=== PATIENT | female | born 1945 | race Two or more races ===

== ENCOUNTER 2025-03-05 08:52 | Outpatient (RCR) | payer OTHER, SELFPAY ==
[2025-02-22 08:30] LABS: Hematocrit* 37.6 % (33.0-51.0); Hemoglobin* 11.7 gm/dL (12.0-16.0); Immature Granulocytes Pct Auto 1.5 %; Mean Corpuscular HGB Conc 31 gm/dL (32-36); Mean Corpuscular Hemoglobin 25 pg (26-34); Mean Corpuscular Volume 79 fL (80-100); RDW Coefficient of Variation % 24.3 % (11.5-15.5); Red Blood Count* 4.78 m/uL (4.00-5.20); White Blood Count* 3.91 K/uL (4.50-11.00)
[2025-02-22] MEDS: cefTRIAXone 2 GM in 0.9 % SODIUM CHLORIDE Mini-bag 100 ML IVPB (08:34)
[2025-02-22 08:36] LABS: Immature Granulocytes Abs Auto 0.10 K/uL (0.00-0.30); Lymphocytes Absolute Auto 0.40 K/uL (0.90-2.90); Slide Review Reflex No
[2025-02-22 08:50] LABS: Creatinine* 2.6 mg/dL (0.5-1.5); Estimated Glomerular Filt Rate 18 ml/min
[2025-02-22 08:51] LABS: Alanine Aminotransferase* 22 U/L (4-35)
[2025-02-22 08:53] VITALS: BP 126/79; PULSE 108; RESP 18; TEMP 36.9; O2SAT 97
[2025-02-22 09:11] LABS: Creatine Kinase* 36 U/L (41-117)
[2025-02-22] MEDS: DAPTOmycin 50 MG/ML inj 600 MG IVP (09:11)
[2025-02-22] MEDS: SODIUM CHLORIDE 0.9 % (FLUSH) 10 ML SYRINGE IVF (09:20)
[2025-02-22 14:46] LABS: Alkaline Phosphatase* 94 U/L (40-150)
[2025-02-23 08:02] VITALS: BP 117/72; PULSE 106; TEMP 36.5; O2SAT 96
[2025-02-23] MEDS: SODIUM CHLORIDE 0.9 % (FLUSH) 10 ML SYRINGE IVF ×2 (08:30→09:37)
[2025-02-23] MEDS: cefTRIAXone 2 GM in 0.9 % SODIUM CHLORIDE Mini-bag 100 ML IVPB (08:32)
[2025-02-24 08:50] VITALS: BP 116/80; PULSE 97; RESP 18; TEMP 36.6; O2SAT 97
[2025-02-24] MEDS: cefTRIAXone 2 GM in 0.9 % SODIUM CHLORIDE Mini-bag 100 ML IVPB (09:07)
[2025-02-24] MEDS: SODIUM CHLORIDE 0.9 % (FLUSH) 10 ML SYRINGE IVF (09:54)
[2025-02-24] MEDS: DAPTOmycin 50 MG/ML inj 600 MG IVP (09:54)
[2025-02-24 10:03] VITALS: BP 112/82; PULSE 95; RESP 18; TEMP 36.5; O2SAT 98
[2025-02-25] MEDS: cefTRIAXone 2 GM in 0.9 % SODIUM CHLORIDE Mini-bag 100 ML IVPB (09:11)
[2025-02-25] MEDS: SODIUM CHLORIDE 0.9 % (FLUSH) 10 ML SYRINGE IVF ×2 (09:11→10:21)
[2025-02-25 09:17] VITALS: BP 109/79; PULSE 88; RESP 16; TEMP 36.4; O2SAT 98
[2025-02-25 10:15] VITALS: BP 96/67; PULSE 86; RESP 16; O2SAT 95
--- NOTE | 2025-02-25 10:22 | PC.NURSE ---
B/P 96/67 post transfusion. Patient/son state that B/P normally is 100/70. Reports no dizziness, s/sx. Education providing on repositioning slowly to prevent dizziness, falls. Son states they have a blood pressure monitor at home and he will check again today.
[2025-02-26 09:04] VITALS: BP 94/62; PULSE 93; RESP 16; TEMP 36.1; O2SAT 100
[2025-02-26] MEDS: SODIUM CHLORIDE 0.9 % (FLUSH) 10 ML SYRINGE IVF (09:09)
[2025-02-26] MEDS: cefTRIAXone 2 GM in 0.9 % SODIUM CHLORIDE Mini-bag 100 ML IVPB (09:09)
[2025-02-26] MEDS: DAPTOmycin 50 MG/ML inj 600 MG IVP (09:52)
[2025-02-27 07:56] VITALS: BP 82/52; PULSE 94; TEMP 36.1; O2SAT 91
[2025-02-27 08:10] VITALS: BP 107/74; PULSE 82; RESP 16; O2SAT 98
[2025-02-27] MEDS: SODIUM CHLORIDE 0.9 % (FLUSH) 10 ML SYRINGE IVF (08:17)
[2025-02-27] MEDS: cefTRIAXone 2 GM in 0.9 % SODIUM CHLORIDE Mini-bag 100 ML IVPB (08:17)
[2025-02-27 08:53] LABS: Hematocrit* 38.5 % (33.0-51.0); Hemoglobin* 12.0 gm/dL (12.0-16.0); Immature Granulocytes Pct Auto 0.9 %; Mean Corpuscular HGB Conc 31 gm/dL (32-36); Mean Corpuscular Hemoglobin 25 pg (26-34); Mean Corpuscular Volume 79 fL (80-100); RDW Coefficient of Variation % 24.3 % (11.5-15.5); Red Blood Count* 4.86 m/uL (4.00-5.20); White Blood Count* 3.36 K/uL (4.50-11.00)
[2025-02-27 08:56] LABS: Immature Granulocytes Abs Auto 0.00 K/uL (0.00-0.30); Lymphocytes Absolute Auto 0.50 K/uL (0.90-2.90); Slide Review Reflex No
[2025-02-27 09:07] LABS: Chloride* 95 mmol/L (96-114); Potassium* 3.5 mmol/L (3.6-5.1); Sodium* 129 mmol/L (135-149)
[2025-02-27 09:10] LABS: Alanine Aminotransferase* 28 U/L (4-35); Alkaline Phosphatase* 98 U/L (40-150); Anion Gap 13 mEq/L (7-15); Blood Urea Nitrogen* 76 mg/dL (7-30); Carbon Dioxide* 21 mmol/L (20-32); Creatine Kinase* 46 U/L (41-117); Creatinine* 2.7 mg/dL (0.5-1.5); Estimated Glomerular Filt Rate 17 ml/min; INR 3.52 (0.91-1.10); Prothrombin Time 36.6 Seconds
[2025-02-27 09:11] LABS: Calcium* 7.9 mg/dL (8.4-10.6); Glucose* 140 mg/dL (60-115)
[2025-02-28 08:01] VITALS: BP 121/71; PULSE 90; RESP 16; TEMP 36.7; O2SAT 99
[2025-02-28] MEDS: SODIUM CHLORIDE 0.9 % (FLUSH) 10 ML SYRINGE IVF (08:28)
[2025-02-28] MEDS: cefTRIAXone 2 GM in 0.9 % SODIUM CHLORIDE Mini-bag 100 ML IVPB (08:29)
[2025-02-28] MEDS: DAPTOmycin 50 MG/ML inj 600 MG IVP (09:04)
[2025-03-01 08:13] VITALS: BP 106/67; PULSE 92; RESP 16; TEMP 36.3; O2SAT 97
[2025-03-01] MEDS: cefTRIAXone 2 GM in 0.9 % SODIUM CHLORIDE Mini-bag 100 ML IVPB (08:28)
[2025-03-01] MEDS: SODIUM CHLORIDE 0.9 % (FLUSH) 10 ML SYRINGE IVF (08:29)
[2025-03-02 07:56] VITALS: BP 121/86; PULSE 87; RESP 14; TEMP 36.2; O2SAT 92
[2025-03-02] MEDS: cefTRIAXone 2 GM in 0.9 % SODIUM CHLORIDE Mini-bag 100 ML IVPB (08:19)
[2025-03-02] MEDS: DAPTOmycin 50 MG/ML inj 600 MG IVP (08:56)
[2025-03-02] MEDS: SODIUM CHLORIDE 0.9 % (FLUSH) 10 ML SYRINGE IVF (09:15)
[2025-03-03 08:00] VITALS: BP 110/73; PULSE 92; RESP 15; TEMP 36.7; O2SAT 94
[2025-03-03] MEDS: cefTRIAXone 2 GM in 0.9 % SODIUM CHLORIDE Mini-bag 100 ML IVPB (08:20)
[2025-03-03] MEDS: SODIUM CHLORIDE 0.9 % (FLUSH) 10 ML SYRINGE IVF (08:21)
[2025-03-03 08:36] LABS: Hematocrit* 40.9 % (33.0-51.0); Hemoglobin* 12.6 gm/dL (12.0-16.0); Immature Granulocytes Pct Auto 0.7 %; Mean Corpuscular HGB Conc 31 gm/dL (32-36); Mean Corpuscular Hemoglobin 25 pg (26-34); Mean Corpuscular Volume 80 fL (80-100); RDW Coefficient of Variation % 25.3 % (11.5-15.5); Red Blood Count* 5.10 m/uL (4.00-5.20); White Blood Count* 2.93 K/uL (4.50-11.00)
[2025-03-03 08:38] LABS: Immature Granulocytes Abs Auto 0.00 K/uL (0.00-0.30); Lymphocytes Absolute Auto 0.50 K/uL (0.90-2.90)
[2025-03-03 08:39] LABS: Slide Review Reflex No
[2025-03-03 08:50] LABS: Chloride* 99 mmol/L (96-114); Potassium* 4.3 mmol/L (3.6-5.1); Sodium* 135 mmol/L (135-149)
[2025-03-03 08:53] LABS: Anion Gap 12 mEq/L (7-15); Blood Urea Nitrogen* 75 mg/dL (7-30); Calcium* 8.8 mg/dL (8.4-10.6); Carbon Dioxide* 24 mmol/L (20-32); Creatinine* 3.0 mg/dL (0.5-1.5); Estimated Glomerular Filt Rate 15 ml/min; Glucose* 145 mg/dL (60-115); INR 3.44 (0.91-1.10); Prothrombin Time 36.0 Seconds
[2025-03-04 09:02] VITALS: BP 113/77; PULSE 96; RESP 16; TEMP 36.4; O2SAT 95
[2025-03-04] MEDS: cefTRIAXone 2 GM in 0.9 % SODIUM CHLORIDE Mini-bag 100 ML IVPB (09:14)
[2025-03-04] MEDS: DAPTOmycin 50 MG/ML inj 600 MG IVP (09:15)
[2025-03-05] MEDS: cefTRIAXone 2 GM in 0.9 % SODIUM CHLORIDE Mini-bag 100 ML IVPB (09:12)
[2025-03-05] MEDS: SODIUM CHLORIDE 0.9 % (FLUSH) 10 ML SYRINGE IVF (09:13)
[2025-03-05 09:28] VITALS: BP 102/82; PULSE 89; RESP 14; TEMP 36.5; O2SAT 100
== END 2025-06-03 23:59 | disposition home or self-care (01) ==
LOC: MS OUT 08:52
PROVIDERS: PCP Internal Medicine; Referring Provider Internal Medicine; Visit Provider Clinical Nurse Specialist
DX: N39.0 Urinary tract infection, site not specified (principal)
CPT/HCPCS: 36415; 80048; 80197; 82550; 82565; 84075; 84460; 85025; 85610; 96365; 96366; 96368; 96374; 96375; 96376; 99211; G0463; J0696; J0878; J7050